=== PATIENT | male | born 1995 | race Two or more races ===

== ENCOUNTER 2020-10-27 14:10 | Emergency (ER) | payer OTHER ==
[~2020-10-27] VITALS: Ht 182.9 cm; Wt 86.1 kg
[2020-10-27] MEDS ORDERED: IBUP80TA PO (15:08)
[2020-10-27] MEDS ORDERED: NEOSPORIN OINT 0.9 GM PKT TOP ONE (15:15)
[2020-10-27 15:24] VITALS: BP 120/68
== END 2020-10-27 15:25 | disposition home or self-care (01) ==
LOC: M ED 14:10
DX: T33.522A Superficial frostbite of left hand, initial encounter (principal); X31.XXXA Exposure to excessive natural cold, initial encounter; Y92.84 Military training ground as the place of occurrence of the external cause; Y93.01 Activity, walking, marching and hiking; Y99.1 Military activity